=== PATIENT | female | born 1960 | race Two or more races ===

== ENCOUNTER 2018-10-17 15:14 | Outpatient (CLI) | payer OTHER | END 2018-10-17 15:35 | disposition home or self-care (01) | LOC: RAD 15:14 | DX: M54.5 Low back pain (principal); I10 Essential (primary) hypertension ==

== ENCOUNTER → 2018-10-17 | Outpatient (CLI) | payer OTHER | END | disposition home or self-care (01) | LOC: NUCLEAR 14:17 | DX: M81.0 Age-related osteoporosis without current pathological fracture (principal) ==